=== PATIENT | female | born 1975 | race Two or more races ===

== ENCOUNTER → 2018-05-27 | Outpatient (CLI) | payer OTHER ==
[~2018-05-27] MED LIST: CODE1TAB37 PO
== END | disposition home or self-care (01) ==
LOC: LAB 11:35
DX: J11.1 Influenza due to unidentified influenza virus with other respiratory manifestations (principal); J20.0 Acute bronchitis due to Mycoplasma pneumoniae

== ENCOUNTER → 2018-07-28 11:33 | Outpatient (CLI) | payer OTHER | END | disposition home or self-care (01) | LOC: LAB 11:33 | DX: J11.1 Influenza due to unidentified influenza virus with other respiratory manifestations (principal); A43.8 Other forms of nocardiosis; R50.9 Fever, unspecified ==